=== PATIENT | female | born 1980 | race Caucasian/White ===

== ENCOUNTER 2019-07-29 14:58 | Observation (INO) | payer BC ==
[2019-07-29] MEDS ORDERED: ASPIRIN 81 MG PO STA (15:20)
[2019-07-29] MEDS ORDERED: NITROGLYCERIN OINT 1 INCH/GM PACKET TOPICAL STA (15:20)
--- NOTE | 2019-07-29 15:24 | ED ---
General Adult HPI - General Chief complaint: Chest Pain Stated complaint: Chest pain Time Seen by Provider: 07/29/19 15:07 Source: patient, EMS, RN notes reviewed Mode of arrival: EMS Limitations: no limitations - History of Present Illness Initial comments: Patient is a pleasant 38-year-old female presenting to the emergency Department with complaints of chest discomfort. Onset of symptoms was around 145 or 2. Patient felt sharp discomfort in her chest with radiation towards the right arm. Following this patient had more pressure in her chest. Patient did have some associated dyspnea and mild nausea. No diaphoresis. Patient admits to feeling anxious and was tearful. Patient tried to do yoga poses to calm herself down. Patient states she has had somewhat similar symptoms previously with her anxiety however is not been this severe. No leg pain or leg swelling. Discomfort has resolved at this time. - Related Data Home Medications Medication Instructions Recorded Confirmed ALPRAZolam [Xanax] 0.25 mg PO TID PRN 07/29/19 07/29/19 DULoxetine HCL [Cymbalta] 30 mg PO DAILY@1900 07/29/19 07/29/19 Norgestimate-Ethinyl Estradiol 1 tab PO DAILY 07/29/19 07/29/19 [Tri-Sprintec Tablet] Allergies Allergy/AdvReac Type Severity Reaction Status Date / Time No Known Allergies Allergy Verified 07/29/19 15:49 Review of Systems ROS Statement: Those systems with pertinent positive or pertinent negative responses have been documented in the HPI. ROS Other: All systems not noted in ROS Statement are negative. Constitutional: Denies: fever Eyes: Denies: eye pain ENT: Denies: ear pain Respiratory: Reports: as per HPI. Denies: cough Cardiovascular: Reports: chest pain Endocrine: Denies: fatigue Gastrointestinal: Denies: abdominal pain Genitourinary: Denies: dysuria Musculoskeletal: Denies: back pain Skin: Denies: rash Neurological: Denies: weakness Past Medical History Past Medical History: No Reported History History of Any Multi-Drug Resistant Organisms: None Reported Past Surgical History: Section Additional Past Surgical History / Comment(s): wisdom teeth 2004 2014 Past Anesthesia/Blood Transfusion Reactions: No Reported Reaction Past Psychological History: Anxiety, Depression Smoking Status: Former smoker Past Alcohol Use History: None Reported Past Drug Use History: Marijuana - Past Family History Mother Family Medical History: No Reported History General Exam Limitations: no limitations General appearance: alert, in no apparent distress Head exam: Present: normocephalic Eye exam: Present: normal appearance Neck exam: Present: normal inspection Respiratory exam: Present: normal lung sounds bilaterally. Absent: chest wall tenderness Cardiovascular Exam: Present: regular rate, normal rhythm Expanded Peripheral pulses: 2+: Radial (R), Radial (L), Dorsalis Pedis (R), Dorsalis Pedis (L) GI/Abdominal exam: Present: soft. Absent: tenderness Extremities exam: Present: normal inspection. Absent: pedal edema, calf tenderness Neurological exam: Present: alert Psychiatric exam: Present: normal affect, normal mood Skin exam: Present: normal color Course Vital Signs 07/29/19 15:04 Temperature 97.8 F Pulse Rate 90 Respiratory 18 Rate Blood Pressure 131/84 O2 Sat by Pulse 98 Oximetry EKG Findings - EKG Comments: EKG Findings:: Normal sinus rhythm 90. MD 126. QRS 86. QT 360. QTC 440. Normal axis. Normal QRS. No acute ST change. Medical Decision Making - Medical Decision Making Patient reevaluated and resting comfortably in bed. Patient and family updated on results and plan. Case was discussed in detail with Dr. Mckoy, who will admit covered with Dr. Ronquillo. - Lab Data Result diagrams: 07/29/19 15:20 07/29/19 15:20 Lab Results 07/29/19 07/29/19 07/29/19 Range/Units 15:20 15:20 15:20 WBC 8.3 (3.8-10.6) k/uL RBC 4.51 (3.80-5.40) m/uL Hgb 13.1 (11.4-16.0) gm/dL Hct 38.1 (34.0-46.0) % MCV 84.4 (80.0-100.0) fL MCH 29.0 (25.0-35.0) pg MCHC 34.4 (31.0-37.0) g/dL RDW 12.4 (11.5-15.5) % Plt Count 268 (150-450) k/uL Neutrophils % 61 % Lymphocytes % 31 % Monocytes % 4 % Eosinophils % 2 % Basophils % 1 % Neutrophils # 5.0 (1.3-7.7) k/uL Lymphocytes # 2.5 (1.0-4.8) k/uL Monocytes # 0.4 (0-1.0) k/uL Eosinophils # 0.1 (0-0.7) k/uL Basophils # 0.1 (0-0.2) k/uL PT 10.2 (9.0-12.0) sec INR 1.0 (<1.2) APTT 24.2 (22.0-30.0) sec D-Dimer 0.31 (<0.60) mg/L FEU Sodium 140 (137-145) mmol/L Potassium 3.7 (3.5-5.1) mmol/L Chloride 107 (98-107) mmol/L Carbon Dioxide 22 (22-30) mmol/L Anion Gap 11 mmol/L BUN 13 (7-17) mg/dL Creatinine 0.77 (0.52-1.04) mg/dL Est GFR (CKD-EPI)AfAm >90 (>60 ml/min/1.73 sqM) Est GFR (CKD-EPI)NonAf >90 (>60 ml/min/1.73 sqM) Glucose 106 H (74-99) mg/dL Calcium 9.4 (8.4-10.2) mg/dL Magnesium 1.9 (1.6-2.3) mg/dL Total Bilirubin 0.5 (0.2-1.3) mg/dL AST 22 (14-36) U/L ALT 30 (9-52) U/L Alkaline Phosphatase 56 (38-126) U/L Troponin I (0.000-0.034) ng/mL Total Protein 6.8 (6.3-8.2) g/dL Albumin 4.2 (3.5-5.0) g/dL 07/29/19 Range/Units 15:20 WBC (3.8-10.6) k/uL RBC (3.80-5.40) m/uL Hgb (11.4-16.0) gm/dL Hct (34.0-46.0) % MCV (80.0-100.0) fL MCH (25.0-35.0) pg MCHC (31.0-37.0) g/dL RDW (11.5-15.5) % Plt Count (150-450) k/uL Neutrophils % % Lymphocytes % % Monocytes % % Eosinophils % % Basophils % % Neutrophils # (1.3-7.7) k/uL Lymphocytes # (1.0-4.8) k/uL Monocytes # (0-1.0) k/uL Eosinophils # (0-0.7) k/uL Basophils # (0-0.2) k/uL PT (9.0-12.0) sec INR (<1.2) APTT (22.0-30.0) sec D-Dimer (<0.60) mg/L FEU Sodium (137-145) mmol/L Potassium (3.5-5.1) mmol/L Chloride (98-107) mmol/L Carbon Dioxide (22-30) mmol/L Anion Gap mmol/L BUN (7-17) mg/dL Creatinine (0.52-1.04) mg/dL Est GFR (CKD-EPI)AfAm (>60 ml/min/1.73 sqM) Est GFR (CKD-EPI)NonAf (>60 ml/min/1.73 sqM) Glucose (74-99) mg/dL Calcium (8.4-10.2) mg/dL Magnesium (1.6-2.3) mg/dL Total Bilirubin (0.2-1.3) mg/dL AST (14-36) U/L ALT (9-52) U/L Alkaline Phosphatase (38-126) U/L Troponin I <0.012 (0.000-0.034) ng/mL Total Protein (6.3-8.2) g/dL Albumin (3.5-5.0) g/dL - Radiology Data Radiology results: image reviewed (Chest x-ray shows no acute process) Disposition Clinical Impression: Chest pain Disposition: ADMITTED IP TO THIS [facility] Is patient prescribed a controlled substance at d/c from ED?: No Referrals: Serafin Ronquillo DO [Primary Care Provider] - 1-2 days Decision Time: 16:37
--- NOTE | 2019-07-29 15:38 | XR ---
EXAMINATION TYPE: XR chest 2V DATE OF EXAM: 07/29/2019 COMPARISON: None INDICATION: Short of breath, dizziness, chest pain TECHNIQUE: Frontal and lateral views of the chest are obtained. FINDINGS: The heart size is normal. The pulmonary vasculature is normal. The lungs are clear. IMPRESSION: 1. No acute pulmonary process.
[2019-07-29 16:10] LABS: ALT 30 U/L (9-52); AST 22 U/L (14-36); African American GFR (CKD) >90 (>60 ml/min/1.73 sqM); Albumin 4.2 g/dL (3.5-5.0); Alkaline Phosphatase 56 U/L (38-126); Anion Gap 11 mmol/L; Blood Urea Nitrogen 13 mg/dL (7-17); Calcium 9.4 mg/dL (8.4-10.2); Carbon Dioxide 22 mmol/L (22-30); Chloride 107 mmol/L (98-107); Glucose 106 mg/dL (74-99); Magnesium 1.9 mg/dL (1.6-2.3); Potassium 3.7 mmol/L (3.5-5.1); Sodium 140 mmol/L (137-145); Total Bilirubin 0.5 mg/dL (0.2-1.3); Total Protein 6.8 g/dL (6.3-8.2)
[2019-07-29 16:19] LABS: D-Dimer 0.31 mg/L FEU (<0.60); Partial Thromboplastin Time 24.2 sec (22.0-30.0); Prothrombin Time 10.2 sec (9.0-12.0)
[2019-07-29 16:23] LABS: Basophils # (A) 0.1 k/uL (0-0.2); Basophils % (A) 1 %; Eosinophils # (A) 0.1 k/uL (0-0.7); Eosinophils % (A) 2 %; HCT 38.1 % (34.0-46.0); HGB 13.1 gm/dL (11.4-16.0); Lymphocytes # (A) 2.5 k/uL (1.0-4.8); Lymphocytes % (A) 31 %; MCHC 34.4 g/dL (31.0-37.0); MCV 84.4 fL (80.0-100.0); Mean Platelet Volume 7.2; Monocytes # (A) 0.4 k/uL (0-1.0); Monocytes % (A) 4 %; Neutrophils % (A) 61 %; Platelet Count 268 k/uL (150-450); RBC 4.51 m/uL (3.80-5.40); RDW 12.4 % (11.5-15.5); WBC 8.3 k/uL (3.8-10.6)
[2019-07-29] MEDS ORDERED: NITROGLYCERIN SL TABS 0.4 MG TAB SUBLINGUAL PRN (16:38)
[2019-07-29] MEDS: ALPRAZolam 0.25 MG TAB PO PRN (18:15)
[2019-07-29] MEDS: NITROGLYCERIN OINT 1 INCH/GM PACKET TOPICAL SCH (19:03)
[2019-07-30] MEDS: NITROGLYCERIN OINT 1 INCH/GM PACKET TOPICAL SCH ×2 (01:34→06:09)
[2019-07-30 04:06] LABS: Cholesterol 170 mg/dL (<200); HDL Cholesterol 55 mg/dL (40-60); LDL Cholesterol,Calculated 97 mg/dL (0-99); Triglycerides 89 mg/dL (<150)
[2019-07-30 08:05] VITALS: RESP 16
[2019-07-30] MEDS ORDERED: ASPIRIN 325 MG TAB PO SCH (09:00)
[2019-07-30] MEDS ORDERED: NORGESTIMATE ETHINYL ESTRADIOL PO SCH (09:00)
--- NOTE | 2019-07-30 10:05 | CONS ---
CONSULTATION ATTENDING: Dr. Ronquillo Mrs. Dahl is a 38-year-old female with history of anxiety and depression who presented yesterday with symptoms of chest discomfort, tightness in the chest, not associated with any other symptoms. She denies any prior cardiac history. She is usually average in exercise tolerance and has no exertional chest discomfort and she felt more anxious yesterday and because of that came into the emergency room. Her discomfort was on the right side. She is feeling quite well this morning. She denies any dizziness or palpitation. She denies any syncope. No PND. No orthopnea. No peripheral edema. Her coronary risk factors are negative for hypertension, hyperlipidemia, or diabetes. MEDICATIONS: Her medications at home include: control pills, Cymbalta 30 mg daily that was started recently and Xanax. REVIEW OF SYSTEMS: RESPIRATORY SYSTEM: She has no documented history of asthma, emphysema or bronchitis. GI system: No recent GI bleeding. No peptic ulcer disease. system: No dysuria or hematuria. Nervous system: No stroke or seizure. PHYSICAL EXAMINATION: A 38-year-old female, alert, oriented, no apparent distress. Blood pressure 97/60 with a heart rate in the 60s. HEAD: Normocephalic. Eyes: Sclerae anicteric. NECK: Good upstroke. No bruit. No jugular venous distention. LUNGS: Clear to auscultation. HEART is regular rate and rhythm, S1, S2. No S3. No S4. No murmur or rub. ABDOMEN: Soft, nontender. Positive bowel sounds. No organomegaly. EXTREMITIES: No edema. Intact distal pulses. LAB DATA: Revealed troponin less than 0.012 for 3 samples. Cholesterol 170, LDL of 97, BUN and creatinine 13 and 0.77, potassium 3.7, hemoglobin 13.1. EKG revealed a sinus mechanism, normal axis and intervals with minor nonspecific ST-T wave changes. Chest x-ray shows no acute infiltrate. IMPRESSION: Chest discomfort, atypical for ischemic heart disease. RECOMMENDATION: Patient should be able to be discharged home today and I would recommend to obtain a stress echocardiogram and a transthoracic echo as an outpatient to further evaluate her status and guide her treatment. In the meantime, she will follow up with her primary care physician. Thank you for this consult. We will follow with you. MMODL / IJN: [id number] /
[2019-07-30] MEDS: ALPRAZolam 0.25 MG TAB PO PRN (11:13)
[2019-07-30 12:07] VITALS: BP 97/64; PULSE 59; TEMP 98.1
--- NOTE | 2019-07-30 14:36 | P.HPIM ---
History of Present Illness H&P Date: 07/30/19 Chief Complaint: Chest pain History of presenting complaint: This is a very pleasant 38 year old patient who follows with Dr. Ronquillo. Patient has been active. Questions time she's been getting stress. She sees that is coming from her work she feels. Has been more as being demented of 4. She presented after she noticed some sharp pain in the right breast not really the chest wall and she was laying down after putting her child to sleep. She also felt to be short of breath climbing and some tingling in the right arm felt very anxious and panicky. She felt as if a panic attack was coming on. Patient has not been sleeping very well. Just earlier in the week she went to see her family doctor for anxiety depression and was started on Cymbalta and Xanax. Otherwise she's been quite active all her life. No prior cardiac history. Presented for the same. Review of systems: GEN.: Anxious EYES: None HEENT: None NECK: None RESPIRATORY: As above CARDIOVASCULAR: As above GASTROINTESTINAL: None GENITOURINARY: None MUSCULOSKELETAL: None LYMPHATICS: None HEMATOLOGICAL: None PSYCHIATRY: Anxious NEUROLOGICAL: None Past medical history: Anxiety depression just diagnosed Social history: Does smoke in the past. Occasional marijuana. Lives with a boyfriend. Has a 4-year-old child. 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 EYES: Pupils equal. Conjunctiva normal. HEENT: External appearance of nose and ears normal, oral cavity grossly normal. NECK: JVD not raised; masses not palpable. HEART: First and second heart sounds are normal; no edema. LUNGS: Respiratory rate normal; clear to auscultation. ABDOMEN: Soft, nontender, liver spleen not palpable, no masses palpable. PSYCH: Alert and oriented x3; mood and affect slightly anxiousl. NEUROLOGICAL: Cranial nerves grossly intact; no facial asymmetry, power and sensation grossly intact. LYMPHATICS: No lymph nodes palpable in the axilla and neck INVESTIGATIONS, reviewed in the clinical context: White count 8.3 hemoglobin 13.1 platelets 268 potassium 3.7 crit and 0.77 Troponin 3 negative EKG tracing shows nonspecific T-wave changes Chest x-ray film personally reviewed by me-lung owusu clear Assessment: -This is a patient who being quite anxious to be sleeping too well just started early this week on anxiety medications presents with picture of symptoms more likely of anxiety and panic attack. Cardiac causes need to be ruled out. -Anxiety not otherwise specified -Chronic insomnia, idiopathic Plan: Cardiology was consulted. Patient was counseled about mindfulness. Home medications resumed. Presentation is more compatible with anxiety as opposed to cardiac presentation. Past Medical History Past Medical History: No Reported History History of Any Multi-Drug Resistant Organisms: None Reported Past Surgical History: Section Additional Past Surgical History / Comment(s): wisdom teeth 2005 2014 Past Anesthesia/Blood Transfusion Reactions: No Reported Reaction Past Psychological History: Anxiety, Depression Smoking Status: Former smoker Past Alcohol Use History: None Reported Past Drug Use History: Marijuana - Past Family History Father Family Medical History: No Reported History Mother Family Medical History: No Reported History Medications and Allergies Home Medications Medication Instructions Recorded Confirmed Type ALPRAZolam [Xanax] 0.25 mg PO TID PRN 07/29/19 07/29/19 History DULoxetine HCL [Cymbalta] 30 mg PO DAILY@1900 07/29/19 07/29/19 History Norgestimate-Ethinyl Estradiol 1 tab PO DAILY 07/29/19 07/29/19 History [Tri-Sprintec Tablet] Allergies Allergy/AdvReac Type Severity Reaction Status Date / Time No Known Allergies Allergy Verified 07/29/19 15:49 Physical Exam Vitals: Vital Signs Temp Pulse Pulse Resp BP BP Pulse Ox 07/30/19 08:00 98.3 F 67 16 97/60 99 07/30/19 04:00 97.9 F 62 18 92/57 97 07/30/19 00:00 78 18 07/29/19 23:35 98.4 F 78 18 105/71 96 07/29/19 20:00 78 18 07/29/19 19:30 98.3 F 72 18 110/70 98 07/29/19 19:00 17 07/29/19 18:57 98.1 F 78 18 124/84 98 07/29/19 16:38 90 07/29/19 15:04 97.8 F 90 18 131/84 98 Intake and Output 07/29/19 07/30/19 07/30/19 22:59 06:59 14:59 Intake Total 222 Balance 222 Intake: Oral 222 Other: # Voids 1 Weight 72.575 kg Results CBC & Chem 7: 07/29/19 15:20 07/29/19 15:20 Labs: Abnormal Lab Results - Last 24 Hours (Table) 07/29/19 Range/Units 15:20 Glucose 106 H (74-99) mg/dL Thrombosis Risk Factor Assmnt - Choose All That Apply Any of the Below Risk Factors Present?: Yes Each Factor Represents 1 point: Acute OH, Obesity (BMI >25) Other Risk Factors: No Other congenital or acquired thrombophilia - If yes, enter type in comment: No Thrombosis Risk Factor Assessment Total Risk Factor Score: 2 Thrombosis Risk Factor Assessment Level: Low Risk
--- NOTE | 2019-07-30 14:39 | P.DS ---
Providers Date of admission: 07/29/19 16:38 Expected date of discharge: 07/30/19 Attending physician: Bryan Mckoy Consults: 07/29/19 16:38 Consult Physician Urgent Consulting Provider: Christy Medina Consult Reason/Comments: Cardiac evaluation and care Do you want consulting provider notified?: Yes Primary care physician: Serafin Yg [facility] Course: Chief Complaint: Chest pain History of presenting complaint: This is a very pleasant 38 year old patient who follows with Dr. Ronquillo. Patient has been active. Questions time she's been getting stress. She sees that is coming from her work she feels. Has been more as being demented of 4. She presented after she noticed some sharp pain in the right breast not really the chest wall and she was laying down after putting her child to sleep. She also felt to be short of breath climbing and some tingling in the right arm felt very anxious and panicky. She felt as if a panic attack was coming on. Patient has not been sleeping very well. Just earlier in the week she went to see her family doctor for anxiety depression and was started on Cymbalta and Xanax. Otherwise she's been quite active all her life. No prior cardiac history. Presented for the same. Cardiology was consulted. THE patient to be discharged. Outpatient stress test. And 2-D echocardiogram as an outpatient. Patient was counseled about mind calming exercises including mindfulness. Discussed that. Consultation: Dr. Vega from cardiology Physical examination: VITAL SIGNS: 97.8, 90, 18, 1 31/84, 98% room air GENERAL: BMI 31.2, sitting up of a bit anxious. EYES: Pupils equal. Conjunctiva normal. HEENT: External appearance of nose and ears normal, oral cavity grossly normal. NECK: JVD not raised; masses not palpable. HEART: First and second heart sounds are normal; no edema. LUNGS: Respiratory rate normal; clear to auscultation. ABDOMEN: Soft, nontender, liver spleen not palpable, no masses palpable. PSYCH: Alert and oriented x3; mood and affect slightly anxiousl. INVESTIGATIONS, reviewed in the clinical context: White count 8.3 hemoglobin 13.1 platelets 268 potassium 3.7 crit and 0.77 Troponin 3 negative EKG tracing shows nonspecific T-wave changes Chest x-ray film personally reviewed by me-lung owusu clear Discharge diagnosis: -Anterior chest wall pain likely psychosomatic. -Anxiety not otherwise specified -Chronic insomnia, idiopathic Disposition: Home Patient Condition at Discharge: Stable Plan - Discharge Summary Discharge Rx Participant: No New Discharge Prescriptions: Continue DULoxetine HCL [Cymbalta] 30 mg PO DAILY@1900 ALPRAZolam [Xanax] 0.25 mg PO TID PRN PRN Reason: Anxiety Norgestimate-Ethinyl Estradiol [Tri-Sprintec Tablet] 1 tab PO DAILY Discharge Medication List ALPRAZolam [Xanax] 0.25 mg PO TID PRN 07/29/19 [History] DULoxetine HCL [Cymbalta] 30 mg PO DAILY@1900 07/29/19 [History] Norgestimate-Ethinyl Estradiol [Tri-Sprintec Tablet] 1 tab PO DAILY 07/29/19 [History] Follow up Appointment(s)/Referral(s): Lizet Vega MD [STAFF PHYSICIAN] - 1 Week (office is closed, patient is to call during office hours.) Serafin Ronquillo DO [Primary Care Provider] - 1 Week Patient Instructions/Handouts: Chest Pain (DC), Anxiety (ED) Activity/Diet/Wound Care/Special Instructions: streess test per cardiology Discharge Disposition: HOME SELF-CARE
[2019-07-30] MEDS ORDERED: DULoxetine HCL 30 MG CAPSULE.DR PO SCH (19:00)
== END 2019-07-30 12:53 | disposition home or self-care (01) ==
LOC: EC 14:58 → 1SOBS 16:38
PROVIDERS: ADMIT Hospitalist; ATTEND Hospitalist
DX: R07.89 Other chest pain (principal); F41.9 Anxiety disorder, unspecified; F32.9 Major depressive disorder, single episode, unspecified; R11.0 Nausea; R06.02 Shortness of breath; R20.2 Paresthesia of skin; F12.90 Cannabis use, unspecified, uncomplicated; F51.01 Primary insomnia; E66.9 Obesity, unspecified; Z68.31 Body mass index [BMI] 31.0-31.9, adult; Z79.3 Long term (current) use of hormonal contraceptives; Z79.899 Other long term (current) drug therapy; Z87.891 Personal history of nicotine dependence
CPT/HCPCS: 99285; 36415; 93005; 85379; 80061; 80053; 83735; 84484 ×2; 85025; 85610; 85730; 71046; G0378 ×2

== ENCOUNTER → 2020-09-04 | Outpatient (CLI) | payer BC ==
--- NOTE | 2020-09-04 11:24 | MM ---
Reason for exam: screening (asymptomatic). Baseline mammogram. History: Patient had first child at age 34. Physical Findings: Nurse did not find any significant physical abnormalities on exam. MG Screening Mammo w CAD Bilateral CC and MLO view(s) were taken. The breast tissue is heterogeneously dense. This may lower the sensitivity of mammography. Finding: There are 10 mm equal density (isodense) masses in both breasts. These results were verbally communicated with the patient and result sheet given to the patient on 09/04/20. ASSESSMENT: Incomplete: need additional imaging evaluation, BI-RAD 0 RECOMMENDATION: Special view mammogram of both breasts.
--- NOTE | 2020-09-04 11:25 | MM ---
Reason for exam: additional evaluation requested from abnormal screening. History: Patient had first child at age 34. Physical Findings: Breast exam preformed at baseline screening. MG Work Up Mamm w CAD BILAT Bilateral spot compression CC view(s) were taken. Spot compression MLO view(s) were taken of the left breast. The breast tissue is heterogeneously dense. This may lower the sensitivity of mammography. No significant new findings when compared with previous films. These results were verbally communicated with the patient and result sheet given to the patient on 09/04/20. ASSESSMENT: Probably benign, BI-RAD 3 RECOMMENDATION: Follow-up diagnostic mammogram of both breasts in 6 months.
== END | disposition home or self-care (01) ==
LOC: RADMAMWWP 10:16
PROVIDERS: ATTEND Obstetrics & Gynecology
DX: Z12.31 Encounter for screening mammogram for malignant neoplasm of breast (principal); R92.8 Other abnormal and inconclusive findings on diagnostic imaging of breast
CPT/HCPCS: 77066; 77067

== ENCOUNTER → 2022-01-14 | Outpatient (CLI) | payer BC ==
--- NOTE | 2022-01-14 14:31 | MM ---
Reason for exam: additional evaluation requested from prior study. Last mammogram was performed 1 year and 4 months ago. History: Patient had first child at age 34. Physical Findings: A clinical breast exam by your physician is recommended on an annual basis and results should be correlated with mammographic findings. MG 3D Diag Mammo W/Cad REBECCA Bilateral CC and MLO view(s) were taken. Prior study comparison: September 04, 2020, bilateral MG work up mamm w CAD BILAT. September 04, 2020, bilateral MG screening mammo w CAD. The breast tissue is heterogeneously dense. This may lower the sensitivity of mammography. There is no discrete abnormality including area of concern. No significant new findings when compared with previous films. These results were verbally communicated with the patient and result sheet given to the patient on 01/14/22. ASSESSMENT: Negative, BI-RAD 1 RECOMMENDATION: Routine screening mammogram of both breasts in 1 year.
== END | disposition home or self-care (01) ==
LOC: RADMAMWWP 13:26
PROVIDERS: ATTEND Obstetrics & Gynecology
DX: R92.8 Other abnormal and inconclusive findings on diagnostic imaging of breast (principal)
CPT/HCPCS: 77062; 77066

== ENCOUNTER → 2023-01-15 | Outpatient (CLI) | payer BC ==
--- NOTE | 2023-01-18 07:44 | MM ---
Reason for Exam: Screening (asymptomatic). Last screening mammogram was performed 12 month(s) ago. Patient History: Menarche at age 14. First Full-Term at age 34. Late child-bearing (after 30). Premenopausal. Patient has history of breast feeding. Last menstrual period: 01/02/2023 Risk Values: Oriana 5 year model risk: 0.8%. NCI Lifetime model risk: 13.6%. Prior Study Comparison: 09/04/2020 Bilateral Screening Mammogram, [facility]. 09/04/2020 Bilateral Diagnostic Mammogram, [facility]. 01/14/2022 Bilateral Diagnostic Mammogram, [facility]. Tissue Density: The breast tissue is heterogeneously dense. This may lower the sensitivity of mammography. Findings: Analyzed By CAD. Benign-appearing bilateral axillary lymph nodes are redemonstrated. There is no suspicious group of microcalcifications or new suspicious mass in either breast. Overall Assessment: Negative, BI-RAD 1 Management: Screening Mammogram of both breasts in 1 year. A clinical breast exam by your physician is recommended on an annual basis and results should be correlated with mammographic findings. Electronically signed and approved by: Gee Lord M.D.
== END | disposition home or self-care (01) ==
LOC: RADMAMWWP 08:29
PROVIDERS: ATTEND Obstetrics & Gynecology
DX: Z12.31 Encounter for screening mammogram for malignant neoplasm of breast (principal)
CPT/HCPCS: 77063; 77067

== ENCOUNTER → 2024-02-22 | Outpatient (CLI) | payer OTHER ==
--- NOTE | 2024-02-23 21:46 | MM ---
Reason for Exam: Screening (asymptomatic). Last mammogram was performed 1 year(s) and 1 month(s) ago. Patient History: Menarche at age 14. First Full-Term at age 34. Late child-bearing (after 30). Premenopausal. Patient has history of breast feeding. Risk Values: Oriana 5 year model risk: 0.8%. NCI Lifetime model risk: 13.5%. Prior Study Comparison: 09/04/2020 Bilateral Diagnostic Mammogram, [facility]. 01/14/2022 Bilateral Diagnostic Mammogram, [facility]. 01/15/2023 Bilateral MG 3D screening mammo w/cad, [facility]. Tissue Density: The breasts are heterogeneously dense, which may obscure small masses. Findings: Analyzed By CAD. There is no suspicious group of microcalcifications or new suspicious mass in either breast. Overall Assessment: Negative, BI-RAD 1 Management: Screening Mammogram of both breasts in 1 year. . Patient should continue monthly self-breast exams. A clinical breast exam by your physician is recommended on an annual basis. This exam should not preclude additional follow-up of suspicious palpable abnormalities. Note on Oriana scores and lifetime risk: 1. A Oriana score greater than 3% is considered moderate risk. If this is the case, consider specialist referral to assess eligibility for a risk reducing agent. 2. If overall lifetime risk for the development of breast cancer is 20% or higher, the patient may qualify for future screening with alternating mammogram and breast MRI. Electronically signed and approved by: Raoul Young M.D. Radiologist
== END | disposition home or self-care (01) ==
LOC: RADMAMWWP 09:11
PROVIDERS: ATTEND Obstetrics & Gynecology
DX: Z12.31 Encounter for screening mammogram for malignant neoplasm of breast (principal)
CPT/HCPCS: 77063; 77067

== ENCOUNTER → 2024-07-18 | Outpatient (CLI) | payer BC ==
--- NOTE | 2024-07-18 15:23 | XR ---
EXAMINATION TYPE: XR chest 2V DATE OF EXAM: 07/18/2024 3:20 PM CLINICAL INDICATION: Female, 43 years old with history of R61 GENERALIZED HYPERHIDROSIS; PHH COMPARISON: Chest radiographs from 07/29/2019 TECHNIQUE: XR chest 2V Frontal view of the chest. FINDINGS: Lungs/Pleura: There is no evidence of pleural effusion, focal consolidation, or pneumothorax. Pulmonary vascularity: Unremarkable. Heart/mediastinum: Cardiomediastinal silhouette is unremarkable. Musculoskeletal: No acute osseous pathology. \ IMPRESSION: No acute cardiopulmonary disease/process. [facility] Xiomara Gardner, , 07/18/2024 3:21 PM
== END | disposition home or self-care (01) ==
LOC: RADXRMAIN 15:04
PROVIDERS: ATTEND Family Medicine
DX: R61 Generalized hyperhidrosis (principal)
CPT/HCPCS: 71046